=== PATIENT | male | born 1995 | race Caucasian/White ===

== ENCOUNTER 2018-06-13 20:37 | Emergency (ER) | payer MEDICAID ==
[~2018-06-13] VITALS: Ht 182.9 cm; Wt 74.5 kg
[2018-06-13 22:09] LABS: BASOPHILS % (AUTO) 0.5 % (0-1); EOSINOPHILS # (AUTO) 0.2 X10'3 (0-0.9); EOSINOPHILS % (AUTO) 2.5 % (0-6); HEMOGLOBIN 15.6 g/dl (14.0-17.9); LYMPHOCYTES # (AUTO) 1.8 X10'3 (1.1-4.8); LYMPHOCYTES % (AUTO) 29.7 % (21-51); MEAN CORPUSCULAR HEMOGLOBIN 29.9 PG (27.0-31.0); MEAN CORPUSCULAR HGB CONC 34.6 g/dL (33.0-36.5); MEAN CORPUSCULAR VOLUME 86.5 FL (78-98); MEAN PLATELET VOLUME 7.5 FL (7.4-10.4); MONOCYTES # (AUTO) 0.5 X10'3 (0-0.9); MONOCYTES % (AUTO) 8.8 % (2-12); NEUTROPHILS # (AUTO) 3.6 X10'3 (1.8-7.7); NEUTROPHILS % (AUTO) 58.5 % (42-75); PLATELET COUNT 311 X10'3 (140-440); RED CELL DISTRIBUTION WIDTH 13.4 % (11.5-14.5); WHITE BLOOD COUNT 6.1 X10'3 (4.5-11.0)
[2018-06-13 22:23] LABS: CLARITY,URINE CLEAR (Clear); COLOR,URINE YELLOW (Yellow); GLUCOSE, URINE NEGATIVE (Neg); KETONES,URINE NEGATIVE (Neg); LEUKOCYTE ESTERASE ,URINE NEGATIVE (Neg); NITRITES, URINE NEGATIVE (Neg); OCCULT BLOOD,URINE NEGATIVE (Neg); PROTEIN,URINE NEGATIVE (Neg); UROBILINOGEN,URINE 0.2 E.U/dL (0.2-1.0)
[2018-06-13 22:26] LABS: ALANINE AMINOTRANSFERASE 16 U/L (12-78); ALBUMIN 4.5 G/DL (3.4-5.0); ALBUMIN/GLOBULIN RATIO 1.4 (1.1-1.5); ALKALINE PHOSPHATASE 160 IU/L (20-180); ANION GAP 11 (8-16); ASPARTATE AMINO TRANSFERASE 18 U/L (10-37); BILIRUBIN,TOTAL 0.2 MG/DL (0.1-1.0); BLOOD UREA NITROGEN 10 MG/DL (7-18); BUN/CREATININE RATIO 12.7 (5.4-32.0); CALCIUM 8.9 MG/DL (8.5-10.1); CHLORIDE 105 MMOL/L (99-107); CREATININE 0.79 MG/DL (0.60-1.10); GLUCOSE 80 MG/DL (70-104); SODIUM 143 MMOL/L (135-145); TOTAL CARBON DIOXIDE 27.5 MMOL/L (24-32); TOTAL PROTEIN 7.7 G/DL (6.4-8.2); eGFR > 90 ML/MIN
[2018-06-13 22:26] LABS: UA COLLECTION TYPE NON-SPECIFIED
[2018-06-13 22:29] LABS: URINE AMPHETAMINE SCREEN NEGATIVE (Neg); URINE BARBITUATE SCREEN NEGATIVE (Neg); URINE BENZODIAZEPINES SCREEN NEGATIVE (Neg); URINE CANNABINOID SCREEN POSITIVE (Neg); URINE COCAINE SCREEN NEGATIVE (Neg); URINE METHADONE SCREEN NEGATIVE (Neg); URINE OPIATE SCREEN NEGATIVE (Neg); URINE PHENCYCLIDINE SCREEN NEGATIVE (Neg)
[2018-06-13 22:34] LABS: ETHANOL < 0.010 GM/DL (0.0-0.010)
--- NOTE | 2018-06-13 23:03 | NUR ---
PER LAKEISHA THE PA HE WANTS [facility] TO EVALUATE PATIENT AND NOT TO ORDER A TELEPSYCH ARMIN RIVERA AWARE
--- NOTE | 2018-06-13 23:57 | NUR ---
PATIENT WITH MOTHER AT BEDSIDE NO OBSERVABLE S/S OF ACUTE STRESS AT THIS TIME
[2018-06-14] MEDS ORDERED: OXCA600T9 PO ×2 (00:27→01:00)
[2018-06-14] MEDS ORDERED: CLON-527 PO (00:27)
[2018-06-14] MEDS ORDERED: nicotine 14mg patch - 24hr TD ONE (00:35)
--- NOTE | 2018-06-14 01:37 | NUR ---
Patients mother name is Ana, her number is [phone] Patients sisters name is Mynor, her number is [phone] The patient has requested that both parties be kept informed of his care and placement options. The mother requested that she be contacted if anything magor regarding his care is decided upon including if he is to be moved to a new facilty for treatment, the patient verbalized that he is in agreement that she be informed of changes in his care. She took home his belongings except for three books, eye glasses, a pair of underwear, and a glasses case. He has these items at the bedside. The patient is currently living with his sister.
--- NOTE | 2018-06-14 02:15 | NUR ---
faxed meal request to dietary. Patient is pescitarian, will eat dairy, eggs, and fish. Will not eat Beef, Chicken, or Pork. Put a note on the meal request explaining this.
--- NOTE | 2018-06-14 02:17 | NUR ---
PATIENT IN BED EYES CLOSED LAYING ON RIGHT SIDE COVERS ON RR EVEN UN LABORED NO S/S OF ACUTE STRESS AT THIS TIME
--- NOTE | 2018-06-14 02:31 | NUR ---
Packet faxed to [facility].
--- NOTE | 2018-06-14 04:20 | NUR ---
PATIENT IN BED LYING SUPINE EYES CLOSED COVERS ON RR EVEN UN LABORED NO OBSERVABLE S/S OF ACUTE STRESS AT THIS TIME
--- NOTE | 2018-06-14 06:30 | NUR ---
report from juan horne
[2018-06-14] MEDS: oxcarbazepine 150mg tablet PO SCH ×2 (07:15→20:05)
--- NOTE | 2018-06-14 08:00 | NUR ---
pt took his meds and eating breakfast will continue to [facility]
--- NOTE | 2018-06-14 10:00 | NUR ---
pt visiting with his mother and sister will continue to monitor
[2018-06-14] MEDS: clonazePAM 1mg tablet PO PRN ×2 (11:45→20:06)
--- NOTE | 2018-06-14 12:00 | NUR ---
pt eating lunch no s/s of distress
--- NOTE | 2018-06-14 14:00 | NUR ---
pts dad visting with the pt, will continue to monitor
--- NOTE | 2018-06-14 14:12 | NUR ---
pt crying and hugging dad
--- NOTE | 2018-06-14 16:13 | NUR ---
mom at bedside
--- NOTE | 2018-06-14 17:36 | NUR ---
pts mom at bedside resting quietly
[2018-06-14] MEDS ORDERED: acetaminophen 325mg tablet PO PRN (17:50)
--- NOTE | 2018-06-14 18:33 | NUR ---
report given to juan lei
--- NOTE | 2018-06-14 19:06 | NUR ---
JUAN JOSÉ (MOTHER) CELL #[id number]
--- NOTE | 2018-06-14 20:08 | NUR ---
patient appropriate rc pleasant affect; provided sandwhich and apple juice
--- NOTE | 2018-06-14 21:10 | NUR ---
PATIENT REQUESTING NICOTINE PATCH
--- NOTE | 2018-06-14 23:00 | NUR ---
PATIENT IS VERY POLITE, ASKING TO WALK IN THE OVERFLOW AREA.
--- NOTE | 2018-06-15 00:58 | NUR ---
PATIENT APPEARS KRIS SLEEPING: RR EVEN UNLABORED
--- NOTE | 2018-06-15 02:30 | NUR ---
PATIENT APPEARS TO BE SLEEPING , RR EVEN AND UNLABORED ON LEFT SIDE
--- NOTE | 2018-06-15 04:30 | NUR ---
PATIENT LYING ON RIGHT SIDE, BLANKETS ON , RR EVEN UNLABORED
[2018-06-15 05:46] VITALS: BP 113/73
--- NOTE | 2018-06-15 06:38 | NUR ---
PATIENT SITTING IN BED AND READING A BOOK
[2018-06-15] MEDS: oxcarbazepine 150mg tablet PO SCH (07:36)
--- NOTE | 2018-06-15 07:42 | NUR ---
patient provided bagged lunch due to no other snacks available pt needs to eat when he takes his trilieptal
[2018-06-15] MEDS ORDERED: nicotine 14mg patch - 24hr TD SCH (08:00)
--- NOTE | 2018-06-15 09:30 | NUR ---
PATIENT WITH APPROPRIATE AFFECT: ATE ALL OF BREAKFAST; TOOK VERY COOPERATIVE PATIENT OUTSIDE TO SEE THE SNOW AND THE SNOWMAN. BIG BRIGHT SMILE ON PATIENT'S FACE
--- NOTE | 2018-06-15 11:30 | NUR ---
PATIENT IS UP TO BATHROOM AND ASKED FOR HIS PRN KLONOPIN. PATIENT IS PLEASANT AND APPROPRIATE
[2018-06-15] MEDS: clonazePAM 1mg tablet PO PRN (12:35)
--- NOTE | 2018-06-15 12:35 | NUR ---
REPORT TO NASIM SAENZ
--- NOTE | 2018-06-15 13:04 | NUR ---
LUNCH MEAL TRAY PLACED AT PT BEDSIDE, PT SITTING UP IN BED EATING NOW, PT FATHER HERE TO GIVE PT CLOTHES FOR TRANSPORT, [facility] TECHNICIAN WAITING TO TRANSPORT PT TO [facility].
== END 2018-06-15 13:29 ==
LOC: ER 20:38
DX: F31.9 Bipolar disorder, unspecified (principal); R45.851 Suicidal ideations; Z88.1 Allergy status to other antibiotic agents; Z79.899 Other long term (current) drug therapy
CPT/HCPCS: 36415; 80053; 80305; 80320; 81003; 84443; 85025; 99285

== ENCOUNTER 2018-07-26 13:10 | Emergency (ER) | payer MEDICAID ==
[~2018-07-26] VITALS: Ht 185.4 cm; Wt 91.0 kg
[~2018-07-26 13:10] MED LIST: CLON-527 PO; OXCA600T9 PO
[2018-07-26 13:19] VITALS: BP 143/94
== END 2018-07-26 15:19 | disposition home or self-care (01) ==
LOC: ER 13:10
DX: K62.5 Hemorrhage of anus and rectum (principal); F17.200 Nicotine dependence, unspecified, uncomplicated; F12.90 Cannabis use, unspecified, uncomplicated; Z88.1 Allergy status to other antibiotic agents; Z88.8 Allergy status to other drugs, medicaments and biological substances
CPT/HCPCS: 99283

== ENCOUNTER 2018-08-19 21:14 | Emergency (ER) | payer MEDICAID ==
[~2018-08-19] VITALS: Ht 172.7 cm; Wt 82.0 kg
[2018-08-19 21:18] VITALS: BP 133/87
--- NOTE | 2018-08-19 22:14 | NUR ---
[facility] CONTACTED, THEY WILL BE CALLING THE [employer] [facility] NURSE WHO SHOULD BE CALLING ME BACK. SPECIMENS WERE COLLECTED FROM THE PATIENT AND TAKEN TO LAB, BLOG WRITER INSTRUCTED TO HOLD SPECIMENS FOR [facility] COLLECTION IN THE AM, THEY ACKNOWLEDGED.
--- NOTE | 2018-08-19 22:26 | NUR ---
[facility] NURSE CALLED, SHE IS REQUESTING WE SEND OVER THE MD H&P TO THEM AT FAX #: [phone], THEY WILL TAKE THE CASE FROM THERE AND DECIDE IF THEY NEED TO RUN LAB WORK.
== END 2018-08-20 00:35 | disposition home or self-care (01) ==
LOC: ER 21:16
DX: R50.9 Fever, unspecified (principal); F12.90 Cannabis use, unspecified, uncomplicated; Z90.49 Acquired absence of other specified parts of digestive tract; Z88.1 Allergy status to other antibiotic agents; Z79.899 Other long term (current) drug therapy
CPT/HCPCS: 36415; 99283